=== PATIENT | male | born 1985 | race Caucasian/White ===

== ENCOUNTER 2017-09-07 06:31 | Day surgery (SDC) | payer OTHER ==
[2017-09-05 09:57] VITALS: BMI 37.8
[~2017-09-07 06:31] MED LIST: LACTATED RINGERS 1,000 ML IV SCH
[2017-09-07 06:58] VITALS: TEMP 97.9
[2017-09-07] MEDS ORDERED: LACTATED RINGERS 1,000 ML IV ONE ×2 (07:09)
[2017-09-07] MEDS ORDERED: PROPOFOL 10 MG/ML 20 ML VIAL IV ONE (07:43)
[2017-09-07] MEDS ORDERED: LIDOCAINE 1% INJ 10MG/ML (20 ML MDV) ONE (07:43)
[2017-09-07] MEDS ORDERED: KETAMINE 10 MG/ML 20 ML VIAL ONE (07:43)
--- NOTE | 2017-09-07 07:53 | P.GSHP ---
History of Present Illness H&P Date: 09/07/17 Chief Complaint: GI bleed This a 32-year-old male who presents today for colonoscopy patient's had issues rectal bleeding. He is not sure is a history of hemorrhoids. Past Medical History Additional Past Medical History / Comment(s): blood in stool History of Any Multi-Drug Resistant Organisms: None Reported Past Surgical History: No Surgical Hx Reported Past Anesthesia/Blood Transfusion Reactions: No Reported Reaction Additional Past Anesthesia/Blood Transfusion Reaction / Comment(s): has never had anesthesia Smoking Status: Former smoker - Past Family History Mother Family Medical History: Cancer Additional Family Medical History / Comment(s): unsure if had mesothelioma Medications and Allergies Home Medications Medication Instructions Recorded Confirmed Type No Known Home Medications [No 09/05/17 09/07/17 History Known Home Medications] Allergies Allergy/AdvReac Type Severity Reaction Status Date / Time No Known Allergies Allergy Verified 09/05/17 09:53 Surgical - Exam Vital Signs Temp Pulse Resp BP Pulse Ox 97.9 F 88 18 134/88 97 09/07/17 06:57 09/07/17 06:57 09/07/17 06:57 09/07/17 06:57 09/07/17 06:57 - General well developed, no distress - Eyes PERRL, normal ocular movement - ENT normal pinna - Neck no masses - Respiratory normal expansion - Cardiovascular Rhythm: regular - Abdomen Abdomen: soft, non tender Assessment and Plan Assessment: GI bleed. We'll perform colonoscopy.
--- NOTE | 2017-09-07 08:10 | P.OP ---
Date of Procedure: 09/07/17 Preoperative Diagnosis: GI bleed Postoperative Diagnosis: Internal hemorrhoids Procedure(s) Performed: Colonoscopy Anesthesia: MAC Surgeon: Liborio Hathaway Pathology: none sent Condition: stable Disposition: PACU Description of Procedure: Patient's placed on the endoscopy table lateral position. He received IV sedation. Digital rectal exam was performed which revealed internal hemorrhoids. The flexible colonoscope was then placed patient anus passed throughout the entire colon. The ileocecal valve was visually is. The cecum, ascending and transverse colon appeared normal. The descending and sigmoid colon appeared normal. The scope was then brought back the rectum and this appeared normal. Scope was withdrawn through the anus and internal hemorrhoids are noted. There is no active bleeding seen. Scope was withdrawn for patient.
[2017-09-07 08:24] VITALS: RESP 18
[2017-09-07 08:54] VITALS: BP 142/72; PULSE 70
== END 2017-09-07 08:55 | disposition home or self-care (01) ==
LOC: ORWHC2ENDO 06:31
PROVIDERS: ATTEND Surgery
DX: K64.8 Other hemorrhoids (principal); Z87.891 Personal history of nicotine dependence
CPT/HCPCS: 45378; J2001; J2704